=== PATIENT | male | born 1990 | race Caucasian/White ===

== ENCOUNTER 2017-09-09 14:13 | Day surgery (SDC) | payer OTHER | END 2017-09-09 15:40 | disposition home or self-care (01) | LOC: HROP 14:13 → HRIP 14:17 → HROP 15:40 | DX: I86.1 Scrotal varices (principal) ==

== ENCOUNTER 2017-12-11 07:19 | Day surgery (SDC) | payer OTHER ==
[2017-12-11] VITALS (7 sets, daily range): BP systolic 109–123; BP diastolic 69–84; PULSE 57–79; RESP 16–20; TEMP 97.5–97.9; O2SAT 96–100
[~2017-12-11] VITALS: Ht 175.3 cm; Wt 70.5 kg
[~2017-12-11 07:19] MED LIST: ACYC400T PO
[2017-12-11] MEDS ORDERED: SODIUM CHLOR 0.9% 1000 ML INJ 1,000 ML IV SCH (08:15)
[2017-12-11 08:30] LABS: AUTOMATED NEUTROPHIL # 2.4 TH/MM3 (1.8-7.7); BASOPHIL # 0.1 TH/MM3 (0-0.2); BASOPHIL % 1.3 % (0.0-2.0); EOSINOPHIL # 0.2 TH/MM3 (0-0.4); EOSINOPHIL % 3.6 % (0.0-4.0); HEMATOCRIT 44.4 % (39.0-51.0); HEMOGLOBIN 15.2 GM/DL (13.0-17.0); LYMPH % 36.9 % (9.0-44.0); LYMPHOCYTE # 1.9 TH/MM3 (1.0-4.8); MEAN CORPUSCULAR HEMOGLOBIN 30.1 PG (27.0-34.0); MEAN CORPUSCULAR HGB CONC 34.2 % (32.0-36.0); MEAN PLATELET VOLUME 8.6 FL (7.0-11.0); MONO % 11.6 % (0.0-8.0); MONOCYTE # 0.6 TH/MM3 (0-0.9); NEUT % 46.6 % (16.0-70.0); PLATELET COUNT 223 TH/MM3 (150-450); RED BLOOD COUNT 5.05 MIL/MM3 (4.50-5.90); RED CELL DISTRIBUTION WIDTH 12.7 % (11.6-17.2); WHITE BLOOD COUNT 5.2 TH/MM3 (4.0-11.0)
[2017-12-11 08:37] LABS: INTERNATIONAL NORMALIZED RATIO 1.1 RATIO
[2017-12-11 08:51] LABS: BICARBONATE 30.1 MEQ/L (21.0-32.0); CALCIUM 8.9 MG/DL (8.5-10.1); CREATININE 0.9 MG/DL (0.60-1.30)
[2017-12-11] MEDS ORDERED: MIDAZOLAM HCL 2 MG/2 ML VIAL ONE ×2 (09:24→10:16)
[2017-12-11] MEDS ORDERED: fentaNYL CITRATE 250 MCG/5 ML AMP ONE (09:25)
[2017-12-11] MEDS ORDERED: IODIXANOL 320 MG/ML 50 ML VIAL (for RAD SPEC) IVCONTRAST ONE (10:00)
[2017-12-11] MEDS ORDERED: ceFAZolin 2 GM PREMIX 50 ML ONE (10:26)
--- NOTE | 2017-12-11 10:53 | PD.RAD ---
Post Procedure Progress Note Pre Procedure Diagnosis: (1) Left varicocele (2) Testicular pain, left Post Procedure Diagnosis: Procedure Date: Dec 11, 2017 Supervising Radiologist: Ted Rothman Proceduralist/Assist: Zev Gonzalez RT(R), Aby Hedrick RT(R) Anesthesia: Local, Analgesia, Conscious Sedation Plan of Activity Patient to Unit: ROPU Patient Condition: Good See PACS Report for procedural detail/treatment Vascular-Venous Procedure Procedure 1 Procedure Site: Left Renal (left gonadal vein) Procedure(s): Embolization (left gonadal vein), Venogram Access Access Site(s): Right Femoral Vein Closure Site(s): Right hemostasis patch Findings: Prominent varicocele. Small gonadal vein with static flow. Ted Rothman MD Dec 11, 2017 10:53
[2017-12-11] MEDS ORDERED: oxyCODONE/ACETAMINOPHEN 5 MG/325 MG TAB PO PRN (11:00)
[2017-12-11] MEDS ORDERED: ACETAMINOPHEN 325 MG TAB PO PRN (11:00)
[2017-12-11] MEDS ORDERED: ONDANSETRON HCL 4 MG/2 ML VIAL ONE ×2 (11:35→13:27)
--- NOTE | 2017-12-11 11:57 | RADRPT ---
EXAM DATE/TIME: 12/11/2017 11:09 [facility] COMPARISON: No previous studies available for comparison. EXTERNAL COMPARISON : [facility], US TESTICLE, July 29, 2017 INDICATIONS : Post left gonadal vein embolization. MEDICAL HISTORY : Varicocele. Pain in testicles. SURGICAL HISTORY : Left gonadal vein embolization, 12/11/17. Varicocelectomy. ENCOUNTER: Initial ACUITY: 1 day PAIN SCORE: 0/10 LOCATION: Bilateral scrotum. MEASUREMENTS: RIGHT TESTICLE: 4.7 x 3.1 x 2.5cm LEFT TESTICLE: 4.8 x 3.0 x 2.8cm FINDINGS: RIGHT TESTICLE: Homogeneous echotexture without intra or extratesticular mass. Blood flow is symmetric and within no rmal limits. No hydrocele or varicocele. Epididymis is within normal limits. LEFT TESTICLE: Homogeneous echotexture without intra or extratesticular mass. Blood flow is symmetric and within no rmal limits. No hydrocele or varicocele. Epididymis is within normal limits. SCROTUM: Within normal limits. CONCLUSION: Normal exam. Arterial and venous blood flow is preserved bilaterally. Testicles are symmetric in size. Ted Rothman MD on December 11, 2017 at 11:51 Board Certified Radiologist. This report was verified electronically.
--- NOTE | 2017-12-11 14:36 | RADRPT ---
EXAM DATE/TIME: 12/11/2017 09:40 [facility] COMPARISON: No previous studies available for comparison. INDICATIONS : Patient with history of left varicocele in need of embolization. MEDICAL HISTORY : Left varicocele SURGICAL HISTORY : Left varicocelectomy ENCOUNTER: Initial ACUITY: > 1 year PAIN SCORE: 8/10 LOCATION: Left Groin FLUORO TIME: 16.7 minutes IMAGE SERIES: 7 ACCESS SITE: Right Femoral vein SEDATION TIME: 60 minutes CONTRAST: 1.) 55 cc Visipaque (iodixanol) MEDICATION(S): 1.) 5.5 mg midazolam (Versed) IV 2.) 275 mcg fentanyl (Sublimaze) IV Prophylactic antibiotics were administered with appropriate pre-procedure timing. Vancomycin within 2 hrs of procedure, Ancef (or alternative) within 1 hr of procedure. DEVICE(S): 1.) Left Gonadal vein embolic coil(s) Tornado 035 4X3MM X2 2.) Left Gonadal vein embolic coil(s) Tornado 035 5X3MM X5 3.) Left Gonadal vein embolic coil(s) Tornado 035 6X3MM X4 4.) Left Gonadal vein embolic coil(s) MReye 035 [id number] 5.) Left Gonadal vein Gelfoam 12-7MM PROCEDURE : 1. Ultrasound-guided puncture of the access site. 2. Conscious sedation with continuous EKG and Oximetry monitoring. 3. Angiography of the left gonadal vein 4. coil and Gelfoam embolization, left gonadal vein The risks, benefits and alternatives to the procedure were explained and verbal and written consent w as obtained. The site was prepped in sterile fashion. Full sterile technique was used, including ca p, mask, sterile gloves and gown and a large sterile sheet. Hand hygiene and 2% chlorhexidine and/or betadine/alcohol prep was utilized per protocol for cutaneous antisepsis. Sterile gel and sterile p robe cover were utilized for ultrasound guidance. The skin and subcutaneous tissues were infiltrated with local anesthetic solution. With ultrasound and fluoroscopic guidance the selected vein was punctured and a vascular sheath was p laced A Cobra catheter was utilized to select the left renal vein. Contrast injection confirmed position. W sung was advanced up the vein but I could not get a catheter to follow. Therefore, a 45 cm, insul 16 F rench sheath was advanced up into the left renal vein to secure the access. Contrast injection showed some retrograde flow down the nondilated gonadal vein. Hockey-stick catheter and Glidewire were the n advanced into the vein. Contrast injection confirmed the presence of a varicocele. A series of coil s were then placed along the course of the gonadal vein beginning just above the inguinal ligament an d terminated at the junction of the gonadal vein and the left renal vein. Gelfoam slurry was injected between coil masses. The puncture site was closed with manual pressure and hemostasis was obtained. The patient tolerated the procedure well and there were no complications. Conscious sedation was performed with the prescribed dosages and duration as above in the presence of an independent trained radiology nurse to assist in the monitoring of the patient. EKG and oximetry remained stable throughout the procedure. CONCLUSION: 1. Left varicocele. 2. Coil and Gelfoam embolization of the left gonadal vein as above. Ted Rothman MD on December 11, 2017 at 14:05 Board Certified Radiologist. This report was verified electronically.
== END 2017-12-11 14:05 | disposition home or self-care (01) ==
LOC: HROP 07:19 → HRIP 07:22 → HROP 14:05
PROVIDERS: ATTEND Urology
DX: I86.1 Scrotal varices (principal); N50.812 Left testicular pain
CPT/HCPCS: 36012; 37241; 75831; 76870; 76937; 80048; 85025; 85610; 85730; 93975; 99152; 99153; C1769; C1887; C1894; J0690; J2250; J2405; J3010; J7030; Q9967

== ENCOUNTER 2017-12-23 13:53 | Day surgery (SDC) | payer OTHER ==
[2017-12-23 14:05] VITALS: BP 118/67; PULSE 87; RESP 18; TEMP 98.2; O2SAT 98
--- NOTE | 2017-12-23 15:37 | RADRPT ---
EXAM DATE/TIME: 12/23/2017 14:26 [facility] COMPARISON : INDICATIONS : follow up varicocele with gonadal vein embolization. OBJECTIVE: Temperature: 98.2 Heart Rate: 87 Blood Pressure: 118/67 Respiratory: 18 Oximetry: 98 PNEUMONIA VACCINE: HISTORY OF PRESENT ILLNESS: 27-year-old with known left varicocele. Patient remains symptomatic after surgical ligation of the le ft gonadal vein. Recently, patient underwent venography showing a small patent gonadal vein which was subsequently embolized. Varicocele was clearly present. Patient currently reports no significant imp rovement in clinical symptoms. PAST SURGICAL HISTORY : Surgical ligation of the left gonadal vein Endovascular embolization PHYSICAL EXAMINATION: Right groin access has healed appropriately. IMAGING STUDIES: Gonadal vein embolization images were reviewed with the patient ASSESSMENT: Very little clinical improvement in the symptomatic left varicocele posterolateral vein embolization. Discussed situation with Dr. Dandy Hemphill from Urology. He states that persistent pain after both surgical and coil embolization is not uncommon. Additional treatment options are available, however. PLAN: Referral to Dr. Dandy Hemphill for further evaluation and possible treatment of symptomatic left zuri icocele TIME SPENT: 15 minutes Ted Rothman MD on December 23, 2017 at 15:17 Board Certified Radiologist. This report was verified electronically.
== END 2017-12-23 14:50 | disposition home or self-care (01) ==
LOC: HROP 13:53 → HRIP 14:20 → HROP 14:50
PROVIDERS: ATTEND Radiology Body Imaging
DX: I86.1 Scrotal varices (principal)